=== PATIENT | female | born 1955 | race Caucasian/White ===

== ENCOUNTER → 2020-08-31 | Outpatient (REF) ==
[~2020-08-31] MED LIST: AMLODIPINE BESYL5 MG PO; BACTRIM DS 8001 TAB; EXTRA STRENGTH500 MG PO; FLUCONAZOLE150 MG; LOSARTAN POTASS1 TA2 PO; MELOXICAM7.5 MG; MELOXICAM7.5 MG PO; SYNTHROID0.075 MG/T PO; SYNTHROID0.2 MG/TAB PO
== END ==
LOC: LAB 11:13
DX: Z00.00 Encounter for general adult medical examination without abnormal findings (principal); E03.9 Hypothyroidism, unspecified; E78.5 Hyperlipidemia, unspecified

== ENCOUNTER → 2024-03-20 | Outpatient (CLI) | payer MEDICARE, BC | LOC: RAD 14:30 | DX: M41.86 Other forms of scoliosis, lumbar region (principal); M47.26 Other spondylosis with radiculopathy, lumbar region; M51.16 Intervertebral disc disorders with radiculopathy, lumbar region; M24.28 Disorder of ligament, vertebrae; M48.061 Spinal stenosis, lumbar region without neurogenic claudication; M47.22 Other spondylosis with radiculopathy, cervical region; M50.121 Cervical disc disorder at C4-C5 level with radiculopathy; M48.02 Spinal stenosis, cervical region; M50.122 Cervical disc disorder at C5-C6 level with radiculopathy; M43.12 Spondylolisthesis, cervical region; M50.123 Cervical disc disorder at C6-C7 level with radiculopathy; M43.13 Spondylolisthesis, cervicothoracic region ==

== ENCOUNTER → 2024-04-07 | Outpatient (CLI) | payer MEDICARE, BC | LOC: RAD 08:45 | DX: N28.9 Disorder of kidney and ureter, unspecified (principal) ==